=== PATIENT | female | born 1975 | race African-American/Black ===

== ENCOUNTER 2023-04-17 20:09 | Emergency (ER) | payer BC ==
[~2023-04-17] VITALS: Ht 160 cm; Wt 93.0 kg
[2023-04-17 20:29] VITALS: TEMP 98.2; O2SAT 100
[2023-04-17 21:23] LABS: CLARITY URINE CLEAR (CLEAR); COLOR URINE YELLOW (YELLOW); GLUCOSE URINE NEGATIVE (NEGATIVE); KETONES URINE TRACE (NEGATIVE); LEUKOCYTE ESTERASE URINE NEGATIVE (NEGATIVE); NITRITE URINE NEGATIVE (NEGATIVE); OCCULT BLOOD URINE NEGATIVE (NEGATIVE); PH URINE 6.5 (4.5-8.0); PROTEIN URINE NEGATIVE (NEGATIVE); SPECIFIC GRAVITY URINE 1.025 (1.005-1.030)
[2023-04-17] MEDS ORDERED: CYCL10TA21 MT (23:35)
[2023-04-17 23:41] VITALS: BP 149/71; PULSE 56; RESP 18
== END 2023-04-17 23:42 | disposition home or self-care (01) ==
LOC: ER 20:09
DX: G89.29 Other chronic pain (principal); M54.50 Low back pain, unspecified; D64.9 Anemia, unspecified
CPT/HCPCS: 81003; 81025; 99283

== ENCOUNTER 2023-09-28 07:43 | Emergency (ER) | payer BC, MEDICAID ==
[~2023-09-28] VITALS: Ht 167.6 cm; Wt 91.0 kg
[~2023-09-28 07:43] MED LIST: CYCL10TA21 MT
[2023-09-28 07:56] VITALS: TEMP 98.1; O2SAT 99
[2023-09-28 09:15] VITALS: BP 137/76; PULSE 56; RESP 16
[2023-09-28] MEDS: KETOROLAC 60MG/2ML VIAL IM ONE (09:15)
[2023-09-28] MEDS: DEXAMETHASONE 4MG TABLET PO ONE (09:15)
[2023-09-28] MEDS ORDERED: NAPR220C61 MT (10:17)
[2023-09-28] MEDS ORDERED: LIDO700A15 TP (10:17)
[2023-09-28] MEDS ORDERED: CYCL10TA21 MT (10:17)
== END 2023-09-28 10:39 | disposition home or self-care (01) ==
LOC: ER 07:43
DX: M54.50 Low back pain, unspecified (principal); D64.9 Anemia, unspecified; Z98.890 Other specified postprocedural states
CPT/HCPCS: 99283; 81025; 96372; J8540; J1885